=== PATIENT | female | born 1940 | race Caucasian/White ===

== ENCOUNTER → 2019-11-18 | Outpatient (CLI) | payer BC, OTHER ==
[2019-11-18] VITALS (8 sets, daily range): BP systolic 146–168; BP diastolic 36–86
[~2019-11-18] VITALS: Ht 162.6 cm; Wt 108.9 kg
[~2019-11-18] MED LIST: CO Q-1030 MG PO; LISINOPRIL20 MG PO; PROTONIX40 M4 PO
[2019-11-18 12:20] LABS: HEMOGLOBIN 13.1 gm/dL (12.0-15.0); MCH 29.9 pg (26.0-34.0); MCHC 34.4 g/dL (28.0-37.0); MCV 87.1 fL (80.0-100.0); RBC 4.37 mil/uL (4.20-5.00); RDW-CV 13.1 % (10.5-14.5); WBC 7.9 thou/uL (4.0-11.0)
[2019-11-18 12:28] LABS: APTT 25.5 Seconds (25.0-31.3); PROTIME 10.1 Seconds (9.20-11.50)
[2019-11-18 12:35] LABS: ANION GAP 7 mmol/L (7-16); BUN 15 mg/dL (7-18); CALCIUM 8.8 mg/dL (8.5-10.1); CHLORIDE 102 mmol/L (98-107); CO2 27 mmol/L (21-32); CREATININE 0.9 mg/dL (0.6-1.3); GLUCOSE 106 mg/dL (70-99); POTASSIUM 4.3 mmol/L (3.5-5.1); SODIUM 136 mmol/L (136-145)
[2019-11-18 12:40] LABS: ALBUMIN 3.5 g/dL (3.4-5.0); ALKALINE PHOSPHATASE 74 U/L (46-116); CHOLESTEROL 226 mg/dL (<200); HDL CHOLESTEROL 47 mg/dL (>40); LDL CHOLESTEROL 154 mg/dL (<100); SERUM ASSESSMENT Clear; SGOT 18 U/L (15-37); SGPT 21 U/L (30-65); TC:HDL 4.8 Ratio (Not establshd); TOTAL BILIRUBIN 0.5 mg/dL (<0.1-1.0); TOTAL PROTEIN 7.6 g/dL (6.4-8.2); TRIGLYCERIDE 127 mg/dL (<150); VLDL 25 mg/dL (<40)
--- NOTE | 2019-11-18 15:30 | EKG ---
[place] [address] ELECTROCARDIOGRAM REPORT Name: ABIODUNMARCELLO L Room: [facility]#: [id number] Admission: 11/18/19 Attend Phys: Abel Long, Discharge: Date of : 44 Date of Service: 11/18/19 1158 Report #: [id number] THIS REPORT FOR: //name// [facility] Test Date: 2019-11-18 Test Time: 11:58:10 Pat Name: MARCELLO RASCON Department: Room: Gender: Bacteriology Research Assistant: : 1940 Requested By: Abel Long Order Number: [id number] Reading MD: Abel Long Measurements Intervals [place] Rate: 71 P: 37 IL: 139 QRS: -16 QRSD: 102 T: 30 QT: 395 QTc: 430 Interpretive Statements Sinus rhythm Ventricular premature complex Borderline left axis deviation Low voltage, extremity leads Abnormal R-wave progression, late transition Nonspecific repol abnormality, lateral leads No previous ECG available for comparison Electronically Signed On 11-18-2019 15:30:03 CDT by Abel Long [email or web address] <ELECTRONICALLY SIGNED> By: Abel Long MD, FACC 11/18/19 1530 1158 1158 Abel Long MD, FAC /EPI
--- NOTE | 2019-11-18 17:42 | CARD ---
[address] [address] CARDIAC CATH REPORT Name: MARCELLO RASCON [facility] [id number] Admission: 11/18/19 Attend Phys: Abel Long MD Discharge: Date of : 44 Report #: [id number] THIS REPORT FOR: //name// cc: Javier Crane MD, Douglas W. MD ~ APPROVED REPORT Study performed: 11/18/2019 13:29:47 Patient Details Patient Status: Out-Patient Room #: The patient is a 79 year-old female Event Personnel Abel Long Flat Lock Machine Operator, Miguel Burch RN RN, Daryl Barajas QUALITY ASSURANCE PROJECT MANAGER Monitor, Nathalie Rivers RTR Scrub Procedures Performed Left heart catheterization, coronary angiography and left ventriculography. Indication Dyspnea, Syncope, Positive stress test Risk Factors Family History, Hypercholesterolemia, Hypertension Admission/Lab Medications/Medications given during procedure ACEI/ARB Procedure Narrative The patient was brought electively to the Cardiac Catheterization Laboratory and was prepped and draped in a sterile manner. The right femoral was infiltrated with 1% Lidocaine subcutaneous anesthesia. A [place] 6 FR sheath was inserted into the . Coronary angiography was performed using coronary diagnostic catheters. The right coronary system was accessed and visualized with a JR4 6fr catheter. The left coronary system was accessed and visualized with a JL4 6fr catheter. The left ventricle was accessed and visualized with a 6 Fr Straight Pigtail catheter. Closure device was deployed with a Fr MynxGrip 6/7F. The patient tolerated the procedure well and there were no complications associated with the procedure. [place] [address] CARDIAC CATH REPORT Name: ABIODUNMARCELLO L Room: [facility]#: [id number] Admission: 11/18/19 Attend Phys: Abel Long MD Discharge: Date of : 44 Report #: [id number] Intraoperative Conscious Sedation Sedation start time: 1408 Case end Time: 1430 Fentanyl 25 mcg Versed 1 mg Fluoro Time: 2.1 minutes Dose: DAP 41921 cGycm2 932 mGy Contrast Type and Amount: Visipaque 150 ml Diagnostic Cath Left Main There is significant calcification of the left main coronary artery. There is moderate nonocclusive narrowing noted. LAD The proximal LAD is heavily calcified. There is a 95% eccentric narrowing in the midportion of the vessel. The distal vessel appears free of significant disease and fills both by antegrade and retrograde competitive flow. Diagonal 1 The first diagonal branch is small to moderate in size with approximately 70% narrowing proximally. Circumflex The circumflex coronary artery has an 90 % narrowing in its midportion just after the takeoff of a large first obtuse marginal branch. OM1 The first obtuse marginal branch is a large and branch vessel with a proximal 90% stenosis. OM2 A moderate size second obtuse marginal branch appears to be free of significant disease. Right Coronary The right coronary artery is totally occluded proximally. The distal right coronary artery is filled by left to right collaterals. R PDA The PDA is filled via ojon-ad-couni collaterals. There appears to be moderate diffuse plaquing. RPLV A small diffusely diseased right posterior lateral LV branch fills by itfo-fa-imicj collaterals. Left Ventriculography The left ventricle is normal in size with normal contractility. The left ventricular ejection fraction is estimated to be 55-60%. Hemodynamics The aortic pressure is 136/71 mmHg with a mean of 107 mmHg. The left ventricular pressure is 151/9 mmHg with a mean of mmHg. The left ventricular end diastolic pressure is 24 mmHg. Conclusion 1. Three-vessel coronary artery disease [place] [address] CARDIAC CATH REPORT Name: GENARO RASCONHAILEY Domingo Room: [facility]#: [id number] Admission: 11/18/19 Attend Phys: Abel Long MD Discharge: Date of : 44 Report #: [id number] right coronary artery which fills by [id number]-[id number]-vpbzr collaterals. There is a 95% mid LAD and 90% mid circumflex stenoses. A large first obtuse marginal branch is 90% stenosed proximally. 2. Moderately elevated left ventricular end-diastolic pressure. 3. Normal left ventricular systolic function. Recommendations CABG 1. Will refer for evaluation for possible coronary artery bypass grafting. Medications Administered 1. Continue risk factor modification. <ELECTRONICALLY SIGNED> By: Abel Long MD, FACC 11/18/191741 41 41Micradha Long MD, FACC /INF
== END | disposition home or self-care (01) ==
LOC: M.CL 10:22
PROVIDERS: ATTEND Internal Medicine Cardiovascular Disease
DX: R06.00 Dyspnea, unspecified (principal); R55 Syncope and collapse; R94.30 Abnormal result of cardiovascular function study, unspecified; J45.909 Unspecified asthma, uncomplicated; I11.9 Hypertensive heart disease without heart failure; K21.9 Gastro-esophageal reflux disease without esophagitis; I34.0 Nonrheumatic mitral (valve) insufficiency; Z90.49 Acquired absence of other specified parts of digestive tract; Z90.710 Acquired absence of both cervix and uterus; Z98.890 Other specified postprocedural states; Z79.899 Other long term (current) drug therapy; Z72.89 Other problems related to lifestyle; Z82.49 Family history of ischemic heart disease and other diseases of the circulatory system; Z83.3 Family history of diabetes mellitus; Z88.5 Allergy status to narcotic agent; Z88.8 Allergy status to other drugs, medicaments and biological substances